=== PATIENT | male | born 1960 | race Caucasian/White ===

== ENCOUNTER 2019-12-15 12:15 | Inpatient (IN) | payer BC ==
[~2019-12-15 12:15] MED LIST: CEFAZOLIN 2 Gram 2 GM/50 ML BAG IVPB ONE; CELECOXIB 100 MG CAPSULE PO ONE; FAMOTIDINE 20MG TABLET PO ONE; MECLIZINE 25 MG TABLET PO ONE; METOCLOPRAMIDE 10 MG TABLET PO ONE; VANCOMYCIN 1GM/200ML PREMIX 1 GM/200 ML PIGGYBACK IVPB ONE
[2019-12-15] MEDS ORDERED: RINGERS SOLUTION,LACTATED 1,000 ML IV ONE ×3 (12:45→15:02)
[2019-12-15 13:33] LABS: ABO GROUP O; ANTIBODY SCREEN NEGATIVE (NEGATIVE); RH TYPE POSITIVE
[2019-12-15] MEDS ORDERED: BUPIVACAINE 0.5% W/EPI MPF 30 ML VIAL IU ONE (14:23)
[2019-12-15] MEDS ORDERED: TRANEXAMIC ACID 1,000 MG/10 ML ML IVPB ONE (14:23)
[2019-12-15] MEDS ORDERED: TRANEXAMIC ACID 1,000 MG/10 ML ML IU ONE (14:23)
[2019-12-15] MEDS ORDERED: ONDANSETRON HCL IV 4 MG/2 ML VIAL IVP PRN (15:02)
[2019-12-15] MEDS ORDERED: NALOXONE 0.4 MG/1 ML VIAL IVP PRN (15:02)
[2019-12-15] MEDS ORDERED: ACETAMINOPHEN W/ CODEINE 300MG/60MG TABLET PO PRN ×2 (15:02)
[2019-12-15] MEDS ORDERED: HYDROCODONE/APAP 10/325 TABLET PO PRN ×2 (15:02)
[2019-12-15] MEDS ORDERED: ZOLPIDEM TARTRATE 5 MG TABLET PO PRN (15:02)
[2019-12-15] MEDS ORDERED: MAGNESIUM HYDROXIDE 30 ML UDC PO PRN (15:02)
[2019-12-15] MEDS ORDERED: AL HYDROX/MAG HYDROX 30ML UD PO PRN (15:02)
[2019-12-15] MEDS ORDERED: ACETAMINOPHEN 325 MG TAB PO PRN (15:02)
[2019-12-15] MEDS ORDERED: KETOROLAC 30 MG/ML VIAL IVP PRN (15:02)
[2019-12-15] MEDS ORDERED: DIPHENHYDRAMINE HCL 25 MG CAPSULE PO PRN (15:02)
[2019-12-15] MEDS ORDERED: BISACODYL 10 MG SUPP RC PRN (15:02)
[2019-12-15] MEDS ORDERED: HYDROMORPHONE HCL 2 MG/ML VIAL IM PRN (15:02)
[2019-12-15] MEDS: TRAMADOL HCL 50 MG TABLET PO PRN ×2 (16:36→22:08)
[2019-12-15] MEDS ORDERED: RIVAROXABAN 10 MG TABLET PO SCH (20:00)
[2019-12-15] MEDS: POTASSIUM CHLORIDE/D5-0.9%NACL 20 MEQ/1,000 ML BAG IV SCH (20:54)
[2019-12-15] MEDS: DOCUSATE SODIUM 100 MG CAPSULE PO SCH (22:00)
[2019-12-15] MEDS: CEFAZOLIN 2 Gram 2 GM/50 ML BAG IVPB SCH (22:10)
[2019-12-16] MEDS: POTASSIUM CHLORIDE/D5-0.9%NACL 20 MEQ/1,000 ML BAG IV SCH ×2 (00:41→10:11)
[2019-12-16] MEDS: TRAMADOL HCL 50 MG TABLET PO PRN ×2 (06:20→12:03)
[2019-12-16] MEDS: CEFAZOLIN 2 Gram 2 GM/50 ML BAG IVPB SCH ×2 (06:21→10:38)
[2019-12-16] MEDS ORDERED: PANTOPRAZOLE SODIUM 40 MG TABLET PO SCH (07:00)
[2019-12-16 07:15] LABS: HEMATOCRIT 38.8 % (42.0-52.0); HEMOGLOBIN 12.6 gm/dl (14.0-18.0)
[2019-12-16 07:44] LABS: BLOOD UREA NITROGEN 16 mg/dL (6-20); CREATININE 0.9 mg/dL (0.7-1.2); EST GLOMERULAR FILTRATION RATE > 60 mL/min; GLUCOSE,RANDOM 139 mg/dL (74-109)
--- NOTE | 2019-12-16 08:28 | Rehab Evaluation ---
Patient Information - Patient Information Diagnosis: DJD right hip Ordered Treatment: OT Evaluate and Treat Status: Initial Evaluation Surgery: Yes (right SENA) Date of Surgery: 12/15/19 Past Medical/Surgical Hx: PAST MEDICAL/SURGICAL HISTORY Past Surgical History LTHA RIGHT HIP SCOPE BILAT KNEE SX'S X'S 9 SINUS SX C SCOPES EGD PMH - Respiratory Hx Respiratory Disorders Yes Hx Bronchitis Yes: HX OF Hx of URI Yes: 2 WEEKS AGO RESOLVED PMH - Cardiovascular Hx Cardiovascular Disorders Yes Hx of Mitral Valve Prolapse Yes: ? ON MEDS FOR VALVE PROBLEM NOT SURE IF ITS THE MITRAL Exercise Tolerance Good PMH - Neuro Hx Neurological Disorders Yes Hx Syncope Yes: HX VASOVAGAL EPISODES IN THE PAST PMH - GI Hx Gastrointestinal Disorders Yes Hx Gastroesophageal Reflux Yes: CONTROLLED WITH MEDS PMH - Hx Genitourinary Disorders No PMH - Endocrine Hx Endocrine Disorders No PMH - Musculoskeletal Hx Musculoskeletal Disorders Yes Hx Arthritis Yes: "ALL OVER" PMH - Psych Hx Psychiatric Problems No PMH - Hematology/Oncology Hx Hematology/Oncology Yes Disorders Hx Cancer Yes: SKIN Premorbid Status: Detail (Pt lives with spouse in a 1 story house with 4 steps at the entrance and one railing. He has a walk in shower with a hand held shower head and a suction cup grab bar as well as a commode for the toilet. He does not have a seat for the shower but is thinking about getting one. He has a walker, cane and commode.) Social History: Detail (Pt is responsible for outdoor chores including caring for horses and dogs.) Precautions: [place], Fall, Other (total hip precautions) - Time With Patient Total Time Spent With Patient (Min): 30 Treatment Procedures: Detail (OT eval low complexity) Subjective Information - Subjective Information Per Patient Objective Data - Pain Pain Present: Yes (01/04) - Mental Status Patient Orientation: Oriented x3 - Visual Perception Appears within normal limits for therapeutic activities - ROM Within normal limits (Lisandro UE AROM WNL) - Strength/Tone Within normal limits (Lisandro UE strength WNL) - Coordination Appears within normal limits for therapeutic activities - Bed Mobility Independent (Ind with supine to sit) - Transfers Independent (Ind with sit to stand from EOB) - Balance Balance Sitting: Good Balance Standing: Good - Sensation Intact - Gait Detail (Pt ambulating in hallway with 2 wheeled walker and supervision) - ADL's/IADL's Detail (Pt educated and he was able to demonstrate learning of modified LE dressing techniques using cloth measurer including doffing slipper socks and donning shorts and tennis shoes. Reviewed kitchen and shower safety and modifications, pt verbalized understanding.) Therapy Assessment - Therapy Assessment Detail (Pt is Ind with modified LE dressing techniques using cloth measurer while maintaining total hip precautions.) Problem List - Problem List Occupational Therapy Problem List: Detail (No current IP OT problems identified.) Goals - Goals Occupational Therapy Goals: No current IP OT goals identified. Prognosis - Prognosis Good Plan - Plan Occupational Therapy Plan: Pt is discharged from IP OT. Thank you for this referral.
--- NOTE | 2019-12-16 09:30 | Operative Note ---
DATE OF SURGERY: 12/15/2019 PREOPERATIVE DIAGNOSIS: End-stage arthrosis of the right hip. POSTOPERATIVE DIAGNOSIS: End-stage arthrosis of the right hip. OPERATION: Cementless right total hip arthroplasty using Le and Nephew components with a size 56 no-hole Reflection cup, 32 mm diameter 35-degree offset highly crosslinked liner, a size 15 high-offset cementless [place] stem with a +0 32 mm diameter Oxinium head. STAFF SURGEON: Ulisses Becerra MD COIL BINDER: Edelmira Lizeth Salvador ANESTHESIA: General. PREPARATION: Chloraprep. INDIVIDUAL CONSIDERATIONS: None. PROCEDURE: The patient was taken to the operating room, placed supine on the operating room table. He had a successful induction of a general anesthetic. He was then placed on his side right side up, and his right leg and hip were prepped and draped in the usual fashion. The patient had a direct posterior approach to the hip. Sharp dissection carried down through skin and subcutaneous tissues. Small veins were coagulated with a Bovie. The tensor gluteal fascia was opened along the entire length of the incision, and deep retractors were placed. Short external rotators were identified, piriformis fossa removed. This exposed the posterior capsule. Posterior capsulectomy was performed. Hip was dislocated posteriorly. A femoral neck cut was then made about a fingerbreadth above the lesser troc using an oscillating saw. The head had an area as suspected of denuded cartilage near the dome. When I went into the hip capsule, there was a huge amount of fluid that drained out consistent with this irritation. A rim capsulectomy was then performed. Starting with a 45 mm reamer to get to the medial wall, I reamed to the introitus, which was a 55 for a 56 cup. I slightly under-reamed to 54. After thorough irrigation, I impacted a size 56 no-hole Reflection cup in 20 degrees of forward flexion and 40 degrees of abduction using the extraarticular alignment guide and bony landmarks. There was solid cementless fixation. The center cap screw was placed, and then I impacted a 32 mm diameter 35-degree offset highly cross-linked liner with the offset posteriorly and slightly inferiorly. This gave an excellent stable acetabular construct, and this was packed off. The proximal femur was delivered into the wound, and box cutting osteotome was used to remove the proximal metaphyseal bone. Mid stem reaming was done to a 15. I started feeling cortex between 13-14. I broached to a size 15. I went to the natural anteversion angle which was between 25-30 degrees. After calcar reaming, with a +0 trial, I had absolute stability. It was normal to shuck and complete anterior stability in maximum extension and external rotation. Even flexed to the 90/90 position it was still stable. Flex knee chest was stable. I went ahead and removed the broach, irrigated it out, and then after irrigation I impacted a size 15 high-offset [place] stem with solid cementless fixation, solid calcar contact. I went ahead and irrigated and dried the Pato taper, impacted +0 32 mm diameter Oxinium head on the Pato taper, reduced the hip with similar stability. The sciatic nerve was inspected and found to be completely intact. Hemostasis was obtained a Bovie. After final irrigation, I mixed 1 g of tranexamic acid with 30 mL of saline and placed this deep to the fascia. The fascia was then closed with a running #2 quill, subcu was closed with running 0 quill in layers, and skin was closed with wes. I did infiltrate the skin with 30 mL of 0.5% Marcaine with epinephrine prior to closure. A sterile bulky compressive KENA-type dressing was applied. The patient tolerated the procedure well. Needle and sponge counts were correct. Estimated blood loss was 500 mL. We will check a hemoglobin in the morning. There were no complications. [facility]
[2019-12-16] MEDS ORDERED: LISINOPRIL 10 MG TABLET PO SCH (10:00)
[2019-12-16] MEDS ORDERED: ASPIRIN 81 MG TABEC PO SCH (10:00)
[2019-12-16] MEDS ORDERED: FERROUS SULFATE 325 MG TAB PO SCH (10:00)
[2019-12-16] MEDS ORDERED: CARVEDILOL 3.125 MG TABLET PO SCH (10:00)
[2019-12-16] MEDS: DOCUSATE SODIUM 100 MG CAPSULE PO SCH (10:13)
--- NOTE | 2019-12-16 10:25 | Rehab Evaluation ---
Patient Information - Patient Information Diagnosis: DJD right hip Ordered Treatment: PT Evaluate and Treat Status: Initial Evaluation Surgery: Yes (right SENA) Date of Surgery: 12/15/19 Past Medical/Surgical Hx: PAST MEDICAL/SURGICAL HISTORY Past Surgical History LTHA RIGHT HIP SCOPE BILAT KNEE SX'S X'S 9 SINUS SX C SCOPES EGD PMH - Respiratory Hx Respiratory Disorders Yes Hx Bronchitis Yes: HX OF Hx of URI Yes: 2 WEEKS AGO RESOLVED PMH - Cardiovascular Hx Cardiovascular Disorders Yes Hx of Mitral Valve Prolapse Yes: ? ON MEDS FOR VALVE PROBLEM NOT SURE IF ITS THE MITRAL Exercise Tolerance Good PMH - Neuro Hx Neurological Disorders Yes Hx Syncope Yes: HX VASOVAGAL EPISODES IN THE PAST PMH - GI Hx Gastrointestinal Disorders Yes Hx Gastroesophageal Reflux Yes: CONTROLLED WITH MEDS PMH - Hx Genitourinary Disorders No PMH - Endocrine Hx Endocrine Disorders No PMH - Musculoskeletal Hx Musculoskeletal Disorders Yes Hx Arthritis Yes: "ALL OVER" PMH - Psych Hx Psychiatric Problems No PMH - Hematology/Oncology Hx Hematology/Oncology Yes Disorders Hx Cancer Yes: SKIN Premorbid Status: Detail (Pt lives with spouse in a 1 story house with 4 steps at the entrance and one railing. He has a walk in shower with a hand held shower head and a suction cup grab bar as well as a commode for the toilet. He does not have a seat for the shower but is thinking about getting one. He has a walker, cane and commode.) Social History: Detail (Pt is responsible for outdoor chores including caring for horses and dogs.) Precautions: [place], Fall, Other (total hip precautions,WBAT on R LE) - Time With Patient Total Time Spent With Patient (Min): 25 Treatment Procedures: Detail (Initial Evaluation low complexity) Subjective Information - Subjective Information Per Patient (The patient has minimal complaints of R hip pain but did not rate her pain using 0-10 pain scale.) Objective Data - Mental Status Patient Orientation: Oriented x3 - Visual Perception Appears within normal limits for therapeutic activities - ROM Not within normal limits (The patient's R hip AROM is within total hip precautions. All other LE AROM is WNL.) - Strength/Tone Other (The patient's LE strength was not tested s/p surgery however is functional.) - Bed Mobility Independent (The patient is independent with supine to and from sit transfer.) - Transfers Independent (The patient is independent with sit to and from stand transfer.) - Balance Balance Sitting: Good Balance Standing: Good - Gait Detail (The patient ambulated with front wheeled walker 300 feet WBAT on R LE independently. The patient ambulated on 3 steps with use of one railing and cane using proper technique independently.) Patient Education - Patient Education Teaching Topic: Exercise/Activity (The patient completed THR HEP including: gluteal sets, heel slides, ankle pumps, quad sets, hamstring sets and supine hip abduction with assist( pt. was also instructed in standing hip abduction with use of walker for support.), Precautions (The patient was aware of THR precautions and followed them with mobility.) Response: Return Demonstration Teaching Method: Discussion, Handout Teaching Recipient: Patient Barriers To Learning: None Problem List - Problem List Physical Therapy Problem List: Detail (Decreased R LE strength) Occupational Therapy Problem List: Detail (No current IP OT problems identified.) Goals - Goals Physical Therapy Goals: The patient has met all inpt. PT goals. Occupational Therapy Goals: No current IP OT goals identified. Plan - Plan Physical Therapy Plan: The patient is discharged from inpt. PT and is to cont inue with outpt. PT. Occupational Therapy Plan: Pt is discharged from IP OT. Thank you for this referral.
[2019-12-16] MEDS ORDERED: NEOSTIGMINE 1 MG/1 ML,10ML VIAL IV ONE (12:12)
[2019-12-16] MEDS ORDERED: DEXAMETHASONE 4 MG/ML 1ML VIAL IVP ONE ×2 (12:12)
[2019-12-16] MEDS ORDERED: PROPOFOL 10 MG/ML VIAL IV ONE (12:12)
[2019-12-16] MEDS ORDERED: HYDROMORPHONE HCL 2 MG/ML VIAL IV ONE (12:12)
[2019-12-16] MEDS ORDERED: 0.9 % SODIUM CHLORIDE 10 ML VIAL IVP ONE (12:12)
[2019-12-16] MEDS ORDERED: LIDOCAINE 2% MDV (20MG/ML) 20ML VIAL IV ONE (12:12)
[2019-12-16] MEDS ORDERED: MIDAZOLAM HCL 2MG/2ML VIAL IV ONE (12:12)
[2019-12-16] MEDS ORDERED: GLYCOPYRROLATE 0.2 MG/ML ML IV ONE (12:12)
[2019-12-16] MEDS ORDERED: DESFLURANE 240 ML BTL INH ONE (12:12)
[2019-12-16] MEDS ORDERED: ONDANSETRON HCL IV 4 MG/2 ML VIAL IVP ONE (12:12)
[2019-12-16] MEDS ORDERED: SUCCINYLCHOLINE 20 MG/ML 10ML IVP ONE (12:12)
[2019-12-16] MEDS ORDERED: ROCURONIUM BROMIDE 50MG/5ML VIAL IV ONE (12:12)
[2019-12-16] MEDS ORDERED: EPHEDRINE SULFATE 50 MG/ML ML IV ONE (12:12)
[2019-12-16] MEDS ORDERED: ROPIVACAINE HCL (NAROPIN) /PF 5MG/ML 20ML VIAL IV ONE (12:12)
[2019-12-16] MEDS ORDERED: FENTANYL PF 100MCG/2ML VIAL IV ONE (12:12)
--- NOTE | 2019-12-17 13:01 | Discharge Summary ---
DATE OF ADMISSION: 12/15/2019 DATE OF DISCHARGE: 12/16/2019 DATE OF SURGERY: 12/15/2019 HISTORY: The patient is a delightful 59-year-old male who presents with end- stage arthrosis of his right hip. He was admitted after right total hip arthroplasty. Postoperatively, he did extremely well. He was independent at the time of his discharge. His hospital course was unremarkable. Discharge hemoglobin was 12.6 and did not require transfusion. The plan is to discharge him home in the care of his family. Home PT visiting nurse has been arranged. He will be given Xarelto followed by aspirin for DVT prophylaxis. He will be given Ultram for pain. Visiting nurse will remove his sutures in 2 weeks. He will follow up in my office in 4 weeks. FINAL DIAGNOSIS: End-stage arthrosis of the right hip. SECONDARY DIAGNOSIS: None. OPERATIONS AND PROCEDURES: Cementless right total hip arthroplasty. DISCHARGE CONDITION: Good. [facility]
== END 2019-12-16 12:13 | disposition home or self-care (01) | DRG 470 ==
LOC: MEDSURG 12:16
PROVIDERS: ADMIT Orthopaedic Surgery; ATTEND Orthopaedic Surgery
PROC: 0SR906A Replacement of Right Hip Joint with Oxidized Zirconium on Polyethylene Synthetic Substitute, Uncemented, Open Approach (ICD-10-PCS; principal; 2019-12-15 14:30)
DX: M16.11 Unilateral primary osteoarthritis, right hip (principal); I42.9 Cardiomyopathy, unspecified; I10 Essential (primary) hypertension; I34.1 Nonrheumatic mitral (valve) prolapse; I25.10 Atherosclerotic heart disease of native coronary artery without angina pectoris
CPT/HCPCS: 80048; 85014; 85018; 86850; 86900; 86901; C1776; J0330; J1885; J2405; J2710; J3370; J3480; J7120